=== PATIENT | male | born 1930 | race Hispanic/Latino ===

== ENCOUNTER 2017-04-25 10:36 | Outpatient (CLI) | payer MEDICARE | END 2017-04-25 10:37 | disposition home or self-care (01) | LOC: LABHHL 10:36 | PROVIDERS: ATTEND Internal Medicine | DX: C67.9 Malignant neoplasm of bladder, unspecified (principal); E11.65 Type 2 diabetes mellitus with hyperglycemia; J44.9 Chronic obstructive pulmonary disease, unspecified; I10 Essential (primary) hypertension | CPT/HCPCS: 36415; 83036 ==

== ENCOUNTER 2019-04-22 09:08 | Outpatient (CLI) | payer MEDICARE ==
[2019-04-22 10:13] LABS: Hematocrit 38.2 % (35.5-45.6); Hemoglobin 11.9 gm/dl (11.8-15.2); Mean Corpuscular HGB Conc 31 % (32-34); Platelet Count 344 K/mm3 (140-440); Red Blood Count 5.47 M/mm3 (3.65-5.03)
[2019-04-22 10:18] LABS: Mean Corpuscular Volume 70 fl (84-94); Red Cell Distribution Width 20.9 % (13.2-15.2)
[2019-04-22 10:31] LABS: Chol/HDL Ratio 2.58 %
== END 2019-04-22 09:09 | disposition home or self-care (01) ==
LOC: LAB 09:08
PROVIDERS: ATTEND Internal Medicine
DX: E11.9 Type 2 diabetes mellitus without complications (principal); E66.9 Obesity, unspecified; K59.00 Constipation, unspecified; E78.2 Mixed hyperlipidemia; I10 Essential (primary) hypertension; J44.9 Chronic obstructive pulmonary disease, unspecified
CPT/HCPCS: 36415; 80061; 83036; 83540; 85027